=== PATIENT | male | born 1985 | race Caucasian/White ===

== ENCOUNTER 2017-03-11 16:41 | Emergency (ER) | payer OTHER ==
[~2017-03-11] VITALS: Ht 185.4 cm; Wt 104.3 kg
[2017-03-11 16:49] VITALS: BP 158/84
--- NOTE | 2017-03-11 16:59 | ED GENERAL ADULT ---
History of Present Illness General Chief Complaint: Fever Stated Complaint: FEVERS X5 DAYS Source: patient Exam Limitations: no limitations Vital Signs & Intake/Output Vital Signs & Intake/Output Vital Signs Date Time Temp Pulse Resp B/P B/P Pulse O2 O2 Flow FiO2 Mean Ox Delivery Rate 03/11 1649 100.6 105 15 158/84 98 Room Air Room Air Allergies Coded Allergies: No Known Allergies (03/11/17) Reconcile Medications Ketorolac Tromethamine 10 MG TABLET 1 TAB PO TID PRN PAIN RECEIVED IM IN ER Methylprednisolone. (Medrol) 4 MG TAB.DS.PK 1 DP PO AD INFLAMMATION 6 on day 1 then reduce by one tablet daily until gone Testosterone Cypionate 200 MG/ML VIAL 1 ML IM QW HRT (Reported) Triage Note: PT TO ED FOR C/C OF FEVERS (HIGHEST 103.8 SUNDAY MORNING), BODY ACHES, MOUTH SORES THAT STARTED SUNDAY WELL, +SWOLLEN GLANDS IN TRIAGE. POOR PO INTAKE, LOST 15 LBS OVER THE LAST 5 DAYS. DENIES COUGH, ABD PAIN, NAUSEA. Triage Nurses Notes Reviewed? yes Onset: Gradual Duration: constant Timing: recent history Severity: severe Severity Numbers: 7 HPI: Patient is a 32-year-old male with an unremarkable past medical history presents emergency neck for the past 5 days patient has been complaining of symptoms of diarrhea, body aches fevers chills headache and sore throat where she was evaluated by urgent care facility and had negative rapid strep and culture however she should he was given a 3 day course of penicillin with no relief of symptoms. Patient last took ibuprofen yesterday for fevers. Patient states that eating and drinking make symptoms worse however can't tolerate no vomiting has occurred. Denies any neck pain neck stiffness chest pain shortness of breath cough and ear pain abdominal pain dysuria testicular pain or swelling rash or recent tick bite denies any similar sick contacts (MAYA OLVERA) Past History Travel History Traveled to [place] past 21 day No Medical History Any Pertinent Medical History? none Neurological: NONE EENT: NONE Cardiovascular: NONE Respiratory: NONE Gastrointestinal: NONE Hepatic: NONE Renal: NONE Musculoskeletal: NONE Psychiatric: NONE Endocrine: NONE Blood Disorders: NONE Cancer(s): NONE LASTING ROOM MACHINE OPERATOR/Reproductive: NONE Surgical History Surgical History: non-contributory Psychosocial History What is your primary language Hebrew Tobacco Use: Never used ETOH Use: occasional use Illicit Drug Use: denies illicit drug use Family History Hx Contributory? No (MAYA OLVERA) Review of Systems Review of Systems Constitutional: Reports: see HPI, chills, fever. EENTM: Reports: see HPI, throat pain. Respiratory: Reports: no symptoms. Cardiovascular: Reports: no symptoms. GI: Reports: no symptoms. Genitourinary: Reports: no symptoms. Musculoskeletal: Reports: see HPI, joint pain, muscle pain. Skin: Reports: no symptoms. Neurological/Psychological: Reports: see HPI. Hematologic/Endocrine: Reports: no symptoms. Immunologic/Allergic: Reports: no symptoms. All Other Systems: Reviewed and Negative (MAYA OLVERA) Physical Exam Physical Exam General Appearance: no apparent distress, alert, comfortable Comments: Well-developed well-nourished person in no acute distress HEENT: extraocular motion intact, no nystagmus. Pupils equally round and reactive to light and accommodation. Nose is atraumatic. External auditory canal and Tympanic membranes clear. Pharynx-noted erythema and exudates mild swelling Neck: Supple, anterior cervical lymphadenopathy, normal range of motion without pain or tenderness Back: Nontender, no CVA tenderness. Cardiovascular: Regular rate and rhythms no murmurs rubs or gallops, normal JVP Respiratory: Chest nontender. No respiratory distress.breath sounds clear to auscultation bilaterally Abdomen: Soft, nontender nondistended, no appreciable organomegaly. Normal bowel sounds. No ascites Extremity: No edema, no calf tenderness to palpation, normal and equal pulses. Neuro: Alert oriented x3, motor sensory normal, Skin: No appreciable rash on exposed skin, skin is warm and dry. Psych: Mood and affect is normal, memory and judgment is normal. Core Measures ACS in differential dx? No CVA/TIA Diagnosis: No Severe Sepsis Present: No Septic Shock Present: No (MAYA OLVERA) Progress Differential Diagnoses I considered the following diagnoses in my evaluation of the patient: [Sepsis, meningitis, lymphoma, pharyngitis, otitis media, otitis externa, influenza, LYME , Getachew's angina, epiglottitis, sinusitis, viral syndrome] Plan of Care: Orders Procedure Date/time Status THROAT CULTURE W/QUICK STREP 03/11 1713 Active Patient Centor criteria scored 4 which is rapid strep was negative however cultures pending patient was strongly advised to follow up with his established ENT doctor\ Patient was afebrile on discharge. Patient was thoroughly examined of skin showing no rash or tick bite. Patient was able tolerate by mouth He was strongly advised to continue with the previously prescribed penicillin (MAYA OLVERA) Initial ED EKG: none (MAYA OLVERA) Departure Departure Disposition: HOME OR SELF CARE Condition: Stable Clinical Impression Primary Impression: Pharyngitis Secondary Impressions: Fever Referrals: BIBI TAYLOR,GABINO (PCP/Family) Additional Instructions: As discussed continue your previously prescribed penicillin as directed for full course, begin the prescription of Medrol Dosepak as directed for inflammation, please send this medication tomorrow as you have received this medication in the emergency room. Begin the prescription MAGIC MOUTHWASH as directed for your symptoms of sore throat. Follow-up tomorrow with YOUR ENT DR. PUCKETT for further evaluation treatment. Departure Forms: Customer Survey General Discharge Information Prescriptions: Current Visit Scripts Methylprednisolone. (Medrol) 1 DP PO AD #1 DP 6 on day 1 then reduce by one tablet daily until gone Ketorolac Tromethamine 1 TAB PO TID PRN PAIN #15 TAB RECEIVED IM IN ER (MAYA OLVERA) PA/DIRECTOR PROSPECT Co-Sign Statement Statement: ED Attending supervision documentation- [] I saw and evaluated the patient. I have also reviewed all the pertinent lab results and diagnostic results. I agree with the findings and the plan of care as documented in the PA's/DIRECTOR PROSPECT's documentation. [X] I have reviewed the ED Record and agree with the PA's/DIRECTOR PROSPECT's documentation. [] Additions or exceptions (if any) to the PAs/DIRECTOR PROSPECT's note and plan are summarized below: [] (NATALIE TAYLOR,ZULEMA) Critical Care Note Critical Care Note Critical Care Time: non-applicable (MAYA OLVERA)
[2017-03-11] MEDS ORDERED: TESTOSTERO200 MG/1 M IM (17:16)
[2017-03-11] MEDS ORDERED: MEDROL4 M2 PO (17:56)
[2017-03-11] MEDS ORDERED: KETOROLAC TROME10 M1 PO (17:56)
== END 2017-03-11 18:28 ==
LOC: ERH 16:41
DX: J02.9 Acute pharyngitis, unspecified (principal); R50.9 Fever, unspecified
CPT/HCPCS: 96372; J1885